=== PATIENT | male | born 1990 | race Caucasian/White ===

== ENCOUNTER 2018-07-04 18:01 | Emergency (ER) | payer OTHER ==
[~2018-07-04] VITALS: Ht 180.3 cm; Wt 81.8 kg
[2018-07-04 21:40] VITALS: BP 144/84
[2018-07-04] MEDS ORDERED: KETO10TAB PO (21:41)
[2018-07-04] MEDS ORDERED: VALI5TAB PO (21:41)
[2018-07-04] MEDS ORDERED: diazePAM 5 MG TAB PO ONE (21:45)
[2018-07-04] MEDS ORDERED: KETOROLAC TROMETHAMINE 10 MG TAB PO ONE (21:45)
== END 2018-07-04 21:51 | disposition home or self-care (01) ==
LOC: M ED 18:01
DX: M54.42 Lumbago with sciatica, left side (principal); M62.830 Muscle spasm of back

== ENCOUNTER 2020-08-31 19:24 | Emergency (ER) | payer OTHER ==
[~2020-08-31 19:24] MED LIST: KETO10TAB PO; VALI5TAB PO
[2020-08-31] MEDS ORDERED: AUGMENTIN 875 MG TAB PO ONE (19:40)
[2020-08-31] MEDS ORDERED: oxyCODONE 5MG TAB PO ONE ×2 (19:40→20:35)
[2020-08-31] MEDS ORDERED: AUGM875T28 PO (20:19)
[2020-08-31] MEDS ORDERED: OXYC-517 PO (20:19)
[2020-08-31 20:38] VITALS: BP 124/72
== END 2020-08-31 20:39 | disposition home or self-care (01) ==
LOC: M ED 19:24
DX: S61.152A Open bite of left thumb with damage to nail, initial encounter (principal); W54.0XXA Bitten by dog, initial encounter; Y92.009 Unspecified place in unspecified non-institutional (private) residence as the place of occurrence of the external cause; Y93.9 Activity, unspecified; Y99.9 Unspecified external cause status